=== PATIENT | male | born 1995 | race Caucasian/White ===

== ENCOUNTER → 2018-01-05 | Outpatient (CLI) | payer OTHER ==
[2018-01-05 16:21] LABS: CREATININE, serum 1.06 mg/dL (0.66-1.25)
[2018-01-05 23:48] LABS: FOLATE (FOLIC ACID) 13.8 ng/mL (7.0-31.4)
== END ==
LOC: COL.LAB 14:57
PROVIDERS: Family Medicine
DX: R35.8 Other polyuria (principal); F10.10 Alcohol abuse, uncomplicated

== ENCOUNTER → 2019-10-28 | Outpatient (CLI) | payer OTHER | LOC: ZLAB.KSTAT 16:58 | DX: M79.10 Myalgia, unspecified site (principal); R06.02 Shortness of breath; Z20.828 Contact with and (suspected) exposure to other viral communicable diseases ==